=== PATIENT | male | born 1990 | race Caucasian/White ===

== ENCOUNTER 2019-05-27 08:44 | Emergency (ER) | payer SELFPAY ==
[~2019-05-27] VITALS: Ht 188 cm; Wt 129.3 kg
[2019-05-27] MEDS ORDERED: KETOROLAC TROMETHAMINE 60 MG/2 ML VIAL IM NR (09:15)
[2019-05-27] MEDS ORDERED: DIAZEPAM 2 MG TAB PO NR (09:15)
[2019-05-27] MEDS ORDERED: DEXAMETHASONE SOD PHOS 10 MG/1 ML VIAL IM NR (09:15)
[2019-05-27] MEDS ORDERED: HYDROCODONE/APAP 5MG-325MG TAB PO NR (09:15)
[2019-05-27 09:34] LABS: BACTERIA,URINE FEW /HPF; BILIRUBIN,URINE NEGATIVE (NEGATIVE); CLARITY,URINE CLEAR (CLEAR); COLOR,URINE YELLOW (YELLOW); EPITHELIAL CELLS,URINE FEW /LPF; KETONES,URINE NEGATIVE (NEGATIVE); LEUKOCYTE ESTERASE ,URINE NEGATIVE (NEGATIVE); NITRITE,URINE NEGATIVE (NEGATIVE); PROTEIN,URINE DIPSTICK NEGATIVE (NEGATIVE); URINE UROBILINOGEN 0.2 mg/dL (0.2 - 1)
[2019-05-27 09:42] VITALS: BP 149/87
== END 2019-05-27 10:57 | disposition home or self-care (01) ==
LOC: ER 08:44
DX: M54.41 Lumbago with sciatica, right side (principal); Q85.8 Other phakomatoses, not elsewhere classified
CPT/HCPCS: 81001; 99283; J1100; J1885